=== PATIENT | female | born 1970 | race Caucasian/White ===

== ENCOUNTER 2018-06-09 11:16 | Emergency (ER) | payer BC ==
[2015-03-18 15:55] VITALS: Wt 72.6 kg
[~2018-06-09 11:16] MED LIST: ACET-2708 PO; IBUP800T37 PO; PER PO
--- NOTE | 2018-06-09 11:23 | ER Report ---
History and Physical Time Seen By MD: 11:24 HPI/ROS CHIEF COMPLAINT: Chest pain HISTORY OF PRESENT ILLNESS: This is a 48-year-old female presents to emergency department for chest pain. Patient states that almost one month ago she noticed some left mid axillary discomfort, seemed to intensify with deep breathing, the pain did seem to dissipate after a week or two and then roughly one week ago she began to experience the discomfort again only this time it seemed to move to the left anterior chest, exertional dyspnea, does hurt to take a deep breath. Does have intermittent nausea no vomiting. No fevers or chills. No headaches or rashes. No injuries. No cardiac history. REVIEW OF SYSTEMS: Constitutional: No fever, no chills. Eyes: No discharge. ENT: No sore throat. Cardiovascular: As above. Respiratory: As above. Gastrointestinal: As above. Genitourinary: No hematuria. Musculoskeletal: No back pain. Skin: No rashes. Neurological: No headache. Allergies: Coded Allergies: No Known Drug Allergies (Unverified , 06/09/18) Home Meds Discontinued Reported Medications Acetaminophen/Diphenhydramine (ACETAMINOPHEN PM CAPLET) 1 Each Tablet, 1 EACH PO QHS, TAB 03/10/15 Discontinued Scripts Oxycodone/Acetaminophen (OXYCODONE/ACETAMINOPHEN 5MG/325 MG) 1 Tab Tab, 1-2 TAB PO Q4H PRN for PAIN, #30 TAB 0 Refills Prov:CARLOS EDUARDO CHRIS MD 03/18/15 Ibuprofen (IBUPROFEN) 800 Mg Tab, 800 MG PO Q8H PRN for PAIN, #30 TAB 0 Refills Prov:CARLOS EDUARDO CHRIS MD 03/18/15 Past Medical/Surgical History The patient has a past medical and surgical history of wearing glasses, gallbladder disease, cholecystectomy, hysterectomy. Reviewed Nurses Notes: Yes Hx Smoking: No Smoking Status: Never Smoker Exposure to Second Hand Smoke?: Yes (childhood) Hx Alcohol Use: No Constitutional Vital Sign - Last 24 Hours 06/09/18 06/09/18 06/09/18 06/09/18 11:16 11:21 11:22 11:30 Temp 98.2 Pulse ??? 87 Resp 14 B/P (MAP) 125/77 125/77 (93) 116/81 (93) Pulse Ox 93 O2 Delivery Room Air 12/206/09/18 06/09/18 06/09/18 11:31 11:45 11:46 11:51 Pulse 78 89 89 Resp 11 10 10 B/P (MAP) 116/81 (93) Pulse Ox 94 92 91 O2 Delivery Room Air Room Air 06/09/18 06/09/18 06/09/18 06/09/18 12:00 12:06 12:15 12:21 Pulse ??? 71 Resp 16 B/P (MAP) 112/81 (91) 111/75 (87) Pulse Ox 94 06/09/18 06/09/18 06/09/18 06/09/18 12:30 12:36 12:45 12:51 Pulse 77 59 Resp 10 7 B/P (MAP) 111/69 (83) 112/64 (80) Pulse Ox 93 94 O2 Delivery Room Air Room Air 06/09/18 06/09/18 13:00 13:06 Pulse 68 Resp 15 B/P (MAP) 99/70 (80) Pulse Ox 91 O2 Delivery Room Air Physical Exam General Appearance: The patient is alert, has no immediate need for airway protection and no signs of toxicity. Eyes: Pupils equal and round no pallor or injection. ENT, Mouth: Mucous membranes are moist. Respiratory: There are no retractions, lungs are clear to auscultation. Cardiovascular: Regular rate and rhythm, systolic murmur, no clicks or rubs. Gastrointestinal: Abdomen is soft and non tender, no masses, bowel sounds normal. Neurological: Alert and oriented 4. Moving all extremities. Following all lemus. No focal neuro deficits. Skin: Warm and dry, no rashes. Musculoskeletal: Neck is supple non tender. Extremities are nontender, nonswollen and have full range of motion. DIFFERENTIAL DIAGNOSIS: After history and physical exam differential diagnosis was considered for chest pain including but not limited to myocardial ischemia, pericarditis pulmonary embolus, chest wall pain, pleural inflammation and pulmonary infectious causes. Medical Decision Making Data Points Result Diagram: 06/09/18 1124 06/09/181123 Laboratory Hematology Test 06/09/18 11:24 Red Blood Count 5.33 M/uL (4.17-5.56) Mean Corpuscular Volume 91.6 fL (80.0-96.0) Mean Corpuscular Hemoglobin 31.3 pg (26.0-33.0) Mean Corpuscular Hemoglobin Concent 34.2 g/dL (32.0-36.0) Red Cell Distribution Width 13.5 % (11.5-14.5) Mean Platelet Volume 8.4 fL (7.2-11.1) Neutrophils (%) (Auto) 59.9 % (39.4-72.5) Lymphocytes (%) (Auto) 30.4 % (17.6-49.6) Monocytes (%) (Auto) 7.0 % (4.1-12.4) Eosinophils (%) (Auto) 2.1 % (0.4-6.7) Basophils (%) (Auto) 0.6 % (0.3-1.4) Nucleated RBC Relative Count (auto) 0.0 /100WBC Neutrophils # (Auto) 5.2 K/uL (2.0-7.4) Lymphocytes # (Auto) 2.7 K/uL (1.3-3.6) Monocytes # (Auto) 0.6 K/uL (0.3-1.0) Eosinophils # (Auto) 0.2 K/uL (0.0-0.5) Basophils # (Auto) 0.1 K/uL (0.0-0.1) Nucleated RBC Absolute Count (auto) 0.00 K/uL D-Dimer Quantitative (PE/DVT) 0.40 ug/ml (0-0.50) Sodium Level 140 mmol/L (137-145) Potassium Level 3.6 mmol/L (3.5-5.0) Chloride Level 105 mmol/L (98-107) Carbon Dioxide Level 26 mmol/L (22-31) Blood Urea Nitrogen 15 mg/dl (7-18) Creatinine 0.70 mg/dl (0.52-1.04) Glomerular Filtration Rate Calc > 60.0 Random Glucose 94 mg/dl (75-110) Calcium Level 8.9 mg/dl (8.4-10.2) Total Bilirubin 0.6 mg/dl (0.2-1.3) Aspartate Amino Transf (AST/SGOT) 37 U/L (0-35) Alanine Aminotransferase (ALT/SGPT) 47 U/L (0-56) Alkaline Phosphatase 49 U/L (0-126) Troponin I < 0.012 ng/ml Total Protein 8.0 g/dl (6.3-8.2) Albumin 4.3 g/dl (3.5-5.0) Human Chorionic Gonadotropin, Qual Negative (NEGATIVE) Chemistry Test 06/09/18 11:24 White Blood Count 8.8 k/uL (4.5-11.0) Red Blood Count 5.33 M/uL (4.17-5.56) Hemoglobin 16.7 g/dL (12.0-16.0) Hematocrit 48.9 % (34.0-47.0) Mean Corpuscular Volume 91.6 fL (80.0-96.0) Mean Corpuscular Hemoglobin 31.3 pg (26.0-33.0) Mean Corpuscular Hemoglobin Concent 34.2 g/dL (32.0-36.0) Red Cell Distribution Width 13.5 % (11.5-14.5) Platelet Count 315 K/uL (150-450) Mean Platelet Volume 8.4 fL (7.2-11.1) Neutrophils (%) (Auto) 59.9 % (39.4-72.5) Lymphocytes (%) (Auto) 30.4 % (17.6-49.6) Monocytes (%) (Auto) 7.0 % (4.1-12.4) Eosinophils (%) (Auto) 2.1 % (0.4-6.7) Basophils (%) (Auto) 0.6 % (0.3-1.4) Nucleated RBC Relative Count (auto) 0.0 /100WBC Neutrophils # (Auto) 5.2 K/uL (2.0-7.4) Lymphocytes # (Auto) 2.7 K/uL (1.3-3.6) Monocytes # (Auto) 0.6 K/uL (0.3-1.0) Eosinophils # (Auto) 0.2 K/uL (0.0-0.5) Basophils # (Auto) 0.1 K/uL (0.0-0.1) Nucleated RBC Absolute Count (auto) 0.00 K/uL D-Dimer Quantitative (PE/DVT) 0.40 ug/ml (0-0.50) Glomerular Filtration Rate Calc > 60.0 Calcium Level 8.9 mg/dl (8.4-10.2) Total Bilirubin 0.6 mg/dl (0.2-1.3) Aspartate Amino Transf (AST/SGOT) 37 U/L (0-35) Alanine Aminotransferase (ALT/SGPT) 47 U/L (0-56) Alkaline Phosphatase 49 U/L (0-126) Troponin I < 0.012 ng/ml Total Protein 8.0 g/dl (6.3-8.2) Albumin 4.3 g/dl (3.5-5.0) Human Chorionic Gonadotropin, Qual Negative (NEGATIVE) Coagulation Test 06/09/18 11:24 D-Dimer Quantitative (PE/DVT) 0.40 ug/ml EKG/Imaging EKG Interpretation 12 lead EKG: Time of EKG at 1127. Rhythm: Normal sinus rhythm, ventricular rate 79 BPM. [place]: normal QRS: normal ST segments: No ST depression or elevation identified. No previous EKGs for comparison. Imaging EXAMINATION: PA and Lateral Chest 06/09/2018 11:57 AM HISTORY: Chest Pain COMPARISON: None FINDINGS: Cardiomediastinal contours: Normal Lungs and pleura: No significant acute finding. Small nodular foci in both bases appear mostly to be vessels imaged on end with a potential granuloma in the lateral left base. Bones/soft tissues: Normal Right upper quadrant cholecystectomy clips. IMPRESSION: No acute cardiopulmonary abnormality. Report Dictated By: Jose Grajeda MD at 06/09/2018 12:30 PM Report E-Signed By: Jose Grajeda MD at 06/09/2018 12:31 PM [id number] ED Course/Re-evaluation Clinical Indication for ER IV: Hydration, IV Access ED Course The patient was admitted to room. A history and physical obtained. Differential diagnoses were considered. An IV was started. A CBC, CMP, troponin and d-dimer were obtained. Lab studies unremarkable, negative troponin, negative d-dimer. I did not feel that a delta troponin was needed at this time as the patient's increased chest pain has been ongoing since yesterday. Two-view chest x-ray was negative for any acute cardiopulmonary process. I did review the laboratory and imaging results with the patient. Patient was also given IV liter normal saline bolus. 324 mg chewable aspirin, she was also given 30 mg IV Toradol. Patient st ates having much relief after the Toradol. I did tell the patient that the pain she is experiencing is likely pleurisy. The patient expressed understanding. I did recommend establishing with a primary care provider and following up within the next 1-2 weeks. The patient was in agreement with this plan care and discharged home. Decision to Disposition Date: Jun 09, 2018 Decision to Disposition Time: 13:04 Depart Departure Latest Vital Signs Vital Signs Date Time Temp Pulse Resp B/P (MAP) Pulse Ox O2 Delivery O2 Flow Rate FiO2 06/09/18 13:06 68 15 91 Room Air 06/09/18 13:00 99/70 (80) 06/09/18 11:21 98.2 Impression: Primary Impression: Pleurisy Condition: Improved Disposition: HOME OR SELF-CARE New Scripts No Active Prescriptions or Reported Meds Patient Instructions: Pleurisy (ED) Additional Instructions: No concerning findings on your EKG, chest x-ray or blood work today. I believe the discomfort you are experiencing is caused by pleurisy. You can take 600mg of Ibuprofen every 6 hours as needed for pain. You can also alternate with 500-1000mg of Tylenol every 8 hours as needed. Drink plenty of water. Get plenty of rest. Try to find a positive outlet for your stress. Return to the ED for any other concerns or worsening symptoms. Establish with a primary care provider within the next 1-2 weeks for reevaluation. IRLANDA MEREDITH HEAD END DESIZING MACHINE OPERATOR-BC Jun 09, 2018 11:23
[2018-06-09] MEDS ORDERED: ASPIRIN 81 MG CHEW PO ONE (12:00)
[2018-06-09 12:06] LABS: PLATELET COUNT, AUTOMATED 315 K/uL (150-450)
--- NOTE | 2018-06-09 12:35 | RADIOLOGY IMAGING REPORT ---
FACILITY: [facility] PATIENT NAME: Mary Serna : 1970 MR: [id number] V: [id number] EXAM DATE: ORDERING PHYSICIAN: IRLANDA MEREDITH TECHNOLOGIST: Location: [facility] [place] Patient: Mary Serna : 1970 Visit/Account:[id number] Date of Sevice: 06/09/2018 EXAMINATION: PA and Lateral Chest 06/09/2018 11:57 AM HISTORY: Chest Pain COMPARISON: None FINDINGS: Cardiomediastinal contours: Normal Lungs and pleura: No significant acute finding. Small nodular foci in both bases appear mostly to be vessels imaged on end with a potential granuloma in the lateral left base. Bones/soft tissues: Normal Right upper quadrant cholecystectomy clips. IMPRESSION: No acute cardiopulmonary abnormality. Report Dictated By: Jose Grajeda MD at 06/09/2018 12:30 PM Report E-Signed By: Jose Grajeda MD at 06/09/2018 12:31 PM [id number]
[2018-06-09] MEDS ORDERED: KETOROLAC 30 MG/ML VIAL IVP ONE (12:45)
[2018-06-09 13:00] VITALS: BP 99/70
--- NOTE | 2018-06-09 13:10 | EKG ---
FACILITY: [facility] PATIENT NAME: BRIA MENDOZA : [id number] MR: [id number] V: [id number] EXAM DATE: ORDERING PHYSICIAN: IRLANDA MEREDITH TECHNOLOGIST: KATARZYNA Test Reason : CHEST PAIN Blood Pressure : / mmHG Vent. Rate : 079 BPM Atrial Rate : 079 BPM P-R Int : 152 ms QRS Dur : 082 ms QT Int : 400 ms P-R-T Axes : 059 068 047 degrees QTc Int : 458 ms Normal sinus rhythm Possible Left atrial enlargement Borderline ECG No previous ECGs available Confirmed by Naman Moreno [id number] on 06/09/2018 10:57:49 PM Referred By: Confirmed By:Naman Carbajal
== END 2018-06-09 13:19 | disposition home or self-care (01) ==
LOC: ER 11:38
DX: R09.1 Pleurisy (principal)
CPT/HCPCS: 71046; 84484; 84703; 85025; 85379; 93005; 96374; 99284; J1885; 82040; 82247; 82310; 82374; 82435; 82565; 82947; 84075; 84132; 84155; 84295; 84450; 84460; 84520